=== PATIENT | female | born 1990 | race African-American/Black ===

== ENCOUNTER 2018-06-22 20:04 | Outpatient (CLI) | payer MEDICAID ==
[~2018-06-22] VITALS: Ht 160 cm; Wt 101.6 kg
[~2018-06-22 20:04] MED LIST: METR250T PO; PREN-37 PO; [UNRECOGNIZED DRUG - REMARK] PO
[2018-06-22 20:19] VITALS: BP 120/66
[2018-06-22 20:27] LABS: BILIRUBIN,URINE NEGATIVE (NEGATIVE); CLARITY,URINE SLIGHTLY CLOUDY; COLOR,URINE YELLOW; GLUCOSE, URINE (UA) NEGATIVE (NEGATIVE); KETONES,URINE NEGATIVE (NEGATIVE); LEUKOCYTE ESTERASE ,URINE 2+ (NEGATIVE); NITRITE,URINE NEGATIVE (NEGATIVE); PH,URINE 6.5 (5-9); PROTEIN,URINE NEGATIVE (NEGATIVE); UROBILINOGEN,URINE 1 MG/DL (NORMAL)
[2018-06-22 20:50] LABS: BACTERIA,URINE MODERATE /HPF; SQUAMOUS EPITHELIAL CELL,UR >50 /HPF
--- NOTE | 2018-06-26 21:26 | Physician Query-Final Dx ---
STARR BUSTILLO 06/26/18 2126: Clinic Account Progress/Dx Physician Query: Please give diagnosis Need diagnosis and weeks of gestation. Date of Service Jun 22, 2018 at 20:04 VEE GOODWIN DO 06/27/18 0938: Clinic Account Progress/Dx DIAGNOSIS: Diagnosis 32 week GA Decreased movement, reactive NST STARR BUSTILLO Jun 26, 2018 21:26 VEE GOODWIN DO Jun 27, 2018 09:38
== END 2018-06-22 21:08 | disposition home or self-care (01) ==
LOC: WSo 20:04 → LDRP 20:05 → WSo 21:08
PROVIDERS: ATTEND Family Medicine
DX: O36.8130 Decreased fetal movements, third trimester, not applicable or unspecified (principal); Z3A.32 32 weeks gestation of pregnancy
CPT/HCPCS: 81000; 99212